=== PATIENT | male | born 1990 | race Caucasian/White ===

== ENCOUNTER 2018-03-03 16:31 | Emergency (ER) | payer OTHER, SELFPAY ==
[2018-03-03 16:32] VITALS: BP 119/86; PULSE 91; RESP 18; TEMP 36.9; O2SAT 97; BMI 26.6
--- NOTE | 2018-03-03 16:52 | ED.VISSUMM ---
- ER Visit Summary Date of Service: 03/03/18 Chief Complaint: Headache History of Present Illness: The patient is a 27 M who presents for a headache that began this morning. Patient was at rest when it occurred. Patient is gradually worsened. It is located in the right frontal region of the head with some associated right-sided neck pain. Patient states his headache feels better if he puts pressure on the muscles in his upper right neck. He denies any injury. He denies any similar headaches. He has associated nausea and states he vomited multiple times today. He also had 2 episodes where he felt like he had looked at a bright light and his vision in both eyes was briefly affected, but he did not look at any bright lights prior to this. He took acetaminophen 3 hours ago. Patient denies any abdominal pain, vomiting, fever, chest pain or shortness of breath, or any other complaints. Physical Examination: Vital signs: afebrile, hemodynamically stable, no hypoxia on room air General: well nourished, well developed, in no distress Skin: warm, dry, no rash, no pallor HEENT: normocephalic and atraumatic, no rash, no tenderness over the temporal artery, no tenderness to palpation of the scalp, neck is supple, nontender, full active range of motion without pain, no lymphadenopathy, no reproducible tenderness to palpation of the paraspinal musculature; PERRL, EOMI, vision normal, moist mucous membranes Cardiovascular: regular rate and rhythm without murmurs, no peripheral edema, 2+ pulses all distal extremities Respiratory: No increased work of breathing, lungs are clear to auscultation bilaterally, no rales, rhonchi or wheezing Abdominal: Abdomen is soft, nontender with normoactive bowel sounds, no guarding or rebound, no masses MSK: Moves all extremities, no deformities, normal strength Neuro: Awake and alert, oriented ?4. No facial droop, sensation and motor function intact and symmetric Test Results: Abnormal Lab Results 03/03/18 03/03/18 16:58 16:58 WBC 10.9 RBC 5.12 Hgb 15.5 Hct 43.9 MCV 85.7 MCH 30.3 MCHC 35.3 RDW 12.3 RDW Differential 38.4 Plt Count 135 L MPV 12.7 H Immature Gran % (Auto) 0.200 Neut % (Auto) 82.3 H Lymph % (Auto) 11.8 L [place] % (Auto) 4.9 Eos % (Auto) 0.7 Baso % (Auto) 0.1 Absolute Neuts (auto) 9.0 H Absolute Lymphs (auto) 1.29 Total Counted Not Reportable Sodium 138 Potassium 3.4 L Chloride 103 Carbon Dioxide 24.0 Anion Gap 11 BUN 12 Creatinine 1.09 Estim Creat Clear Calc 101.80 Est GFR (MDRD) Af Amer 104 Est GFR (MDRD) Non-Af 86 BUN/Creatinine Ratio 11.0 Glucose 99 Calcium 8.9 Magnesium 2.1 Medications Given Discontinued Medications Diphenhydramine HCl (Benadryl) 50 mg IV X1 ONE Stop: 03/03/18 16:52 Last Admin: 03/03/18 17:04 Dose: 50 mg Sodium Chloride () 1,000 mls @ 999 mls/hr IV .Q1H1M ONE Stop: 03/03/18 17:51 Last Admin: 03/03/18 17:05 Dose: 999 mls/hr Ketorolac Tromethamine (Toradol) 30 mg IV X1 ONE Stop: 03/03/18 16:52 Last Admin: 03/03/18 17:05 Dose: 30 mg Metoclopramide HCl (Reglan) 10 mg IV X1 ONE Stop: 03/03/18 16:52 Last Admin: 03/03/18 17:05 Dose: 10 mg Emergency Department Course and Treatment: Patient presents with a right-sided headache and an unremarkable exam, tolerating the light very well and appearing comfortable. Patient was given Toradol, Reglan, Benadryl and IV fluids for his headache. Because he has no history of migraines and is complaining of associated vomiting and vision changes, workup was performed with no leukocytosis or anemia, no electrolyte derangements. Patient has no neurologic deficits and again is very well-appearing, and we discussed that a CT of the head would probably be noncontributory at this point. Patient also asked if I could check out his lungs as he has had intermittent brief sharp pains over the last few months. He currently has no complaints of chest pain, shortness of breath, cough or any other complaints that would be concerning for pulmonary process at this time. He was instructed to follow-up with his doctor if he had further concerns or if he is having acute symptoms to be evaluated at that time. Patient had almost complete resolution of his headache after receiving medications. He will use [id number] pain medications as needed for any further discomfort. He was discharged home with a work note. Treatment Plan: [] Disposition: [] Impression: [] This note was generated with [employer] dictation software. It may contain incorrect words, spelling, and punctuation that were not noted in review of the chart prior to signing ED Disposition - Plan for ED Patient: Disposition: Home or Assisted Living Chief Complaint: Headache Instructions: ED Cephalgia Unspecified Referrals: Baldev Eason MD [Primary Care Provider] - 3-5 Days if not improving Additional Instructions: Use ibuprofen, Aleve, or Tylenol as needed for further headache. Drink plenty of fluids to help stay hydrated as well. If you have any worsening of your condition or any new concerning symptoms, please return immediately to the emergency department for another evaluation.
[2018-03-03] MEDS: DiphenhydrAMINE 50 MG/ML Syringe IV (17:04)
[2018-03-03] MEDS: Ketorolac 30 MG/ML Syringe IV (17:05)
[2018-03-03] MEDS: 0.9% Normal Saline 1,000 ML 999 ML IV (17:05)
[2018-03-03] MEDS: Metoclopramide 10 MG/2 ML Vial IV (17:05)
[2018-03-03 17:22] LABS: Absolute Lymphocyte Count 1.29 X10^3/ul (0.83-4.51); Basophil# 0.01 X10^3/uL; Basophil% 0.1 % (0-1); Eosinophil# 0.08 X10^3/uL; Eosinophils% 0.7 % (0-5); Hematocrit 43.9 % (40-54); Hemoglobin 15.5 g/dl (13.0-16.5); Lymphocyte # 1.29 X10^3/ul (4.0); Lymphocyte % 11.8 % (19-41); Mean Corp Hgb Conc 35.3 g/gl (32-36); Mean Corpuscular Hgb 30.3 pg (27.0-32.0); Mean Corpuscular Volume 85.7 fL (80-94); Mean Platelet Vol. 12.7 fl (6.2-12.0); Monocyte# 0.54 X10^3/uL; Monocyte% 4.9 % (0-10); Neutrophil # 8.97 X10^3/uL (2.7-7.7); Neutrophil % 82.3 % (47-70); Platelet Count 135 K/mm3 (150-450); RBC Distribution Width CV 12.3 % (11.6-14.6); RBC Distribution Width SD 38.4 fl (35.1-43.9); Red Blood Count 5.12 M/mm3 (4.6-6.2); White Blood Count 10.9 K/mm3 (4.4-11.0)
[2018-03-03 17:25] LABS: Anion Gap 11 (5-15); BUN 12 mg/dL (7-18); Calcium,Total 8.9 mg/dL (8.5-10.1); Chloride 103 mmol/L (98-107); Creatinine, Serum 1.09 mg/dL (0.70-1.30); EST Glomerular Filtration Rate 86 mL/min (>60); Est Glom Filt Rate - Afr Amer 104 mL/min (>60); Glucose 99 mg/dL (74-106); Magnesium 2.1 mg/dL (1.6-2.6); Potassium 3.4 mmol/L (3.5-5.1); Sodium Level 138 mmol/L (136-145)
[2018-03-03 17:26] LABS: POSITIVE COUNT NO; POSITIVE DIFFERENTIAL NO; POSITIVE MORPHOLOGY NO
[2018-03-03 18:01] VITALS: RESP 16
--- NOTE | 2018-03-03 18:43 | ED.DEP ---
ED Disposition - Plan for ED Patient: Disposition: Home or Assisted Living Chief Complaint: Headache Instructions: ED Cephalgia Unspecified Referrals: Baldev Eason MD [Primary Care Provider] - 3-5 Days if not improving Additional Instructions: Use ibuprofen, Aleve, or Tylenol as needed for further headache. Drink plenty of fluids to help stay hydrated as well. If you have any worsening of your condition or any new concerning symptoms, please return immediately to the emergency department for another evaluation.
[2018-03-03 19:01] VITALS: BP 115/78; PULSE 81; RESP 16; O2SAT 100
== END 2018-03-03 19:02 | disposition home or self-care (01) ==
PROVIDERS: Emergency Provider Emergency Medicine; Family Provider Internal Medicine; PCP Internal Medicine
DX: R51 Headache (principal); R68.83 Chills (without fever); H53.9 Unspecified visual disturbance; R11.2 Nausea with vomiting, unspecified; M54.2 Cervicalgia
CPT/HCPCS: 80048; 83735; 85025; 96361; 96374; 96375; 99283; J7030; A4216

== ENCOUNTER 2020-03-23 19:33 | Emergency (ER) | payer OTHER, SELFPAY ==
[2020-03-23 19:34] VITALS: BP 149/90; PULSE 82; RESP 20; TEMP 36.7; O2SAT 100; BMI 27.4
--- NOTE | 2020-03-23 20:13 | RAD_ITS ---
STUDY: X-RAY CHEST REASON FOR EXAM: Male, 29 years old. Shortness of breath and difficulty breathing, particularly when supine. TECHNIQUE: PA and lateral views of the chest. COMPARISON: None. FINDINGS: The lungs are clear and expanded. There is no demonstrated pleural abnormality. Normal size heart. Normal mediastinum and samreen. Normal visualized pulmonary arteries. Normal visualized aortic arch and descending thoracic aorta. Normal visualized thoracic spine. Normal visualized ribs, clavicles, and shoulders. There is no demonstrated abnormality of the visualized soft tissue structures of the upper abdomen. RAD/Chest PA and Lateral IMPRESSION: Normal x-ray examination of the chest. Electronically Signed: Jayme Biswas DO at 20:50 EDT Tel [phone], Service support ,
--- NOTE | 2020-03-23 20:13 | EKG12_ITS ---
Test Reason : DYSRHYTHMIA Blood Pressure : / mmHG Vent. Rate : 069 BPM Atrial Rate : 069 BPM P-R Int : 142 ms QRS Dur : 086 ms QT Int : 378 ms P-R-T Axes : 021 044 013 degrees QTc Int : 405 ms Normal sinus rhythm Normal ECG Confirmed by STARR CASTRO, ANGELLA ([id number]), editor news SAYDA ARRINGTON ([id number]) on 03/31/2020 12:53:47 P M Referred By: RAMANA Confirmed By:WENDI CLEMENTS MD
--- NOTE | 2020-03-23 20:14 | ED.VIS.GEN ---
History of Present Illness Chief Complaint: Numb/Ting Narrative: Patient is a 29-year-old male who presents with a couple of complaints. He states that he works third shift and when he was trying to sleep today he felt like he would randomly stop breathing. He also complains of numbness down both arms. He felt like his hands were swelling. No chest pain. No headache. No neck pain. No fever. He states he was advised to come to the emergency department by [facility]. Past Medical History - Allergies and Home Meds Allergies/Adverse Reactions: Allergies venom-honey bee [bee venom (honey bee)] Allergy (Verified 03/23/20 19:34) Hives Primary Care Physician: Baldev Eason MD [Primary Care Provider] - Past Medical History: - - Anxiety Smoking Status: Never smoker Review of Systems All systems negative except as indicated General: Denies: Fever Eyes: Denies: Visual changes - bilaterally ENT: Denies: Bilateral ear pain Cardiovascular: Denies: Chest pain Respiratory: Reports: Dyspnea Gastrointestinal: Denies: Vomiting Musculoskeletal: Denies: Myalgias Skin: Denies: Rash Neurological: Reports: Parasthesia. Denies: Headache Psych: Reports: Anxiety Allergy: Denies: Uticaria Physical Exam Vital Signs/Narrative: Vital Signs Temp Pulse Resp BP Pulse Ox 03/23/20 19:34 98.1 F 82 20 H 149/90 H 100 Inital Vital Signs reviewed: Yes General: Well nourished Head: Normocephalic Eyes: EOMI ENT: Moist mucous membranes Neck: Supple, Nontender Cardiovascular: Regular rate, Regular rhythm Respiratory: No distress, CTA bilaterally Abdomen: Soft Extremities: Nontender, No edema Skin: Normal color Neurological: Alert, - - Patient has normal strength and sensation of the bilateral upper extremities Psychological: - - Patient appears anxious Diagnostic/Tx/Re-eval Impressions Chest X-Ray 03/23/20 20:13 IMPRESSION: Normal x-ray examination of the chest. Electronically Signed: Jayme Biswas DO at 20:50 EDT Tel [phone], Service support , Cervical Spine X-Ray 03/23/20 20:28 IMPRESSION: Normal x-ray examination of the visualized cervical spine. If there is continued concern for nerve injury or impingement, MRI is recommended. Electronically Signed: Jayme Biswas DO at 21:03 EDT Tel [phone], Service support , 03/23/20 20:13 Chest PA and Lateral [RAD] Stat 03/23/20 20:28 Cerv Spine 2 or 3 Views [RAD] Stat - Medical Decision Making EKG shows normal sinus rhythm at a rate of 69. Neck x-ray normal. Chest x-ray normal. I suspect the numbness in his arms may be related to cervical radiculopathy. He was advised to follow-up as an outpatient. He does understand return for new or worsening symptoms. Patient was discharged. ED Disposition - Plan for ED Patient: Disposition: Home or Assisted Living Diagnosis: Arm numbness Instructions: ED Paraesthesias Referrals: Baldev Eason MD [Primary Care Provider] -
--- NOTE | 2020-03-23 20:28 | RAD_ITS ---
STUDY: X-RAY - CERVICAL SPINE REASON FOR EXAM: Male, 29 years old. Numbness in the upper extremities. Patient states arms fall sleep. No known injury. TECHNIQUE: 4 view(s) of the cervical spine were obtained. COMPARISON: None FINDINGS: Normal anterior atlantoaxial articulation. Normal odontoid process. Normal cervical lordosis. Normal vertebral bodies and endplates. Normal disc space heights. There is no evidence of acute fracture or loss of vertebral axial height. There is maintenance of normal alignment. The soft tissue structures are unremarkable. RAD/Cerv Spine 2 or 3 Views IMPRESSION: Normal x-ray examination of the visualized cervical spine. If there is continued concern for nerve injury or impingement, MRI is recommended. Electronically Signed: Jayme Biswas DO at 21:03 EDT Tel [phone], Service support ,
--- NOTE | 2020-03-23 20:35 | ED.RN ---
NO OLD EKG
[2020-03-23 22:21] VITALS: RESP 18
== END 2020-03-23 22:23 | disposition home or self-care (01) ==
PROVIDERS: Emergency Provider Emergency Medicine; PCP Internal Medicine
DX: R20.0 Anesthesia of skin (principal); R20.2 Paresthesia of skin; R06.00 Dyspnea, unspecified
CPT/HCPCS: 71046; 72040; 93005; 99282